=== PATIENT | female | born 2005 | race African-American/Black ===

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

== ENCOUNTER 2024-02-18 19:55 | Inpatient (IN) | payer OTHER ==
[~2024-02-18 19:55] MED LIST: Bupivacaine 0.25% HCL 30 ML VIAL ONE; Bupivacaine PF 0.5% 30 ML VIAL ONE; ePHEDrine Sulfate 50 MG/10 ML VIAL ONE
[2024-02-18 20:27] VITALS: BMI 37.5
[2024-02-18] MEDS ORDERED: HYDROcodone/Acetaminophen 5/325 mg Tablet PO PRN (20:45)
[2024-02-18] MEDS ORDERED: Promethazine HCl 25 MG/ML VIAL IM PRN (20:45)
[2024-02-18] MEDS ORDERED: hydrALAZINE 20 MG/ML VIAL SLOW IVP PRN (20:45)
[2024-02-18] MEDS ORDERED: Misoprostol 200 MCG TAB PR PRN (20:45)
[2024-02-18] MEDS ORDERED: Carboprost 250 MCG/ML AMP IM PRN (20:45)
[2024-02-18] MEDS ORDERED: Lactated Ringer's 1,000 ML IV SCH (20:45)
[2024-02-18] MEDS ORDERED: Methylergonovine 0.2 MG/ML VIAL IM PRN (20:45)
[2024-02-18] MEDS ORDERED: Oxytocin 30 units/NS 500 ML 500 ML IV SCH (20:45)
[2024-02-18] MEDS ORDERED: Tranexamic Acid 1,000 MG/10 ML VIAL IVP PRN (20:45)
[2024-02-18] MEDS ORDERED: Diphenoxylate HCl/Atropine Tablet PO PRN (20:45)
[2024-02-18] MEDS ORDERED: Lidocaine 1% (PF) 30 ML VIAL SC PRN (20:45)
[2024-02-18 21:13] LABS: Hematocrit 32.9 % (34.9-44.5); Hemoglobin 10.9 g/dL (12.0-15.5); Mean Corpuscular HGB CONC 33.1 g/dL (32.0-36.0); Mean Corpuscular Hemoglobin 29.3 pg (27.0-33.0); Mean Corpuscular Volume 88.4 fL (81.6-98.3); Mean Platelet Volume 12.5 fL (7.4-10.4); Platelet Count 205 10x3/uL (150-450); RBC Distribution Width 13.1 % (11.5-14.5); Red Blood Cell (RBC) Count 3.72 10x6/uL (3.90-5.03); White Blood Cell (WBC) Count 13.7 10x3/uL (3.5-10.5)
[2024-02-18] MEDS: Misoprostol 100 MCG TAB VAG SCH (22:01)
[2024-02-18 23:54] LABS: HBsAg Index 0.24 S/CO (0-0.99); Hep B Surf Ag - L&D Non-Reactive S/CO (NonReactive)
[2024-02-18 23:55] LABS: Syphilis Antibody Nonreactive (Nonreactive); Syphilis Antibody Index 0.04 S/CO (<1.00 Non-Reactive)
[2024-02-19] MEDS: fentaNYL 50 mcg/mL 1 mL Vial SLOW IVP PRN (04:40)
[2024-02-19] MEDS: Ondansetron PF 4 MG/2 ML Vial IVP PRN (05:21)
[2024-02-19] MEDS: fentaNYL/Ropivacaine Epidural 100 ML ONE (06:46)
[2024-02-19] MEDS ORDERED: Lactated Ringer's 500 ML IV PRN (06:55)
[2024-02-19] MEDS ORDERED: Ondansetron PF 4 MG/2 ML Vial IVP PRN ×2 (06:55→20:04)
[2024-02-19] MEDS ORDERED: Promethazine HCl 25 MG/ML VIAL IM PRN ×2 (06:55→20:04)
[2024-02-19] MEDS ORDERED: Naloxone HCl 0.4 mg/ml Vial IVP PRN ×2 (06:55)
[2024-02-19] MEDS ORDERED: Moisturizing Cream (Eucerin) 113 GM JAR TOP PRN (06:55)
[2024-02-19] MEDS ORDERED: Acetaminophen 325 MG TAB PO PRN (06:55)
[2024-02-19] MEDS ORDERED: ePHEDrine Sulfate 50 MG/10 ML VIAL SLOW IVP PRN (06:55)
[2024-02-19] MEDS ORDERED: diphenhydrAMINE 50 MG/ML VIAL IVP PRN (06:55)
[2024-02-19] MEDS ORDERED: Communication Order-Pharmacy FS SCH (07:00)
[2024-02-19] MEDS ORDERED: fentaNYL 2 mcg/Ropivacaine 0.2% Epidural 100 ML CADD EPIDURAL SCH (07:00)
[2024-02-19] MEDS: Oxytocin 30 units/NS 500 ML 500 ML IVPB SCH (09:57)
[2024-02-19] MEDS: Ibuprofen 800 MG TAB PO PRN (16:12)
[2024-02-19] MEDS: Acetaminophen 500 MG TAB PO PRN (18:35)
[2024-02-19] MEDS ORDERED: Boostrix 0.5 ML (Tdap) VIAL (>/=7 yrs of age) IM ONE (20:04)
[2024-02-19] MEDS ORDERED: hydrALAZINE 20 MG/ML VIAL SLOW IVP PRN (20:04)
[2024-02-19] MEDS ORDERED: diphenhydrAMINE 25 MG CAP PO PRN (20:04)
[2024-02-19] MEDS ORDERED: Lanolin Ointment 7 GM TUBE TOP PRN (20:04)
[2024-02-19] MEDS ORDERED: Bisacodyl 10 MG SUPP PR PRN (20:04)
[2024-02-19] MEDS ORDERED: Milk Of Magnesia 30 ML UDCUP PO PRN (20:04)
[2024-02-19] MEDS: Hepatitis B Vaccine 10 MCG/0.5 ML SYR ONE (20:05)
[2024-02-19] MEDS: Phytonadione Neonatal 1 MG/0.5 ML AMP ONE (20:05)
[2024-02-19] MEDS: HYDROcodone/Acetaminophen 5/325 mg Tablet PO PRN (21:15)
[2024-02-19] MEDS: Docusate 100 MG CAP PO SCH (21:15)
[2024-02-19] MEDS: Benzocaine-Menthol 82.5 ML CAN TOP PRN (23:24)
[2024-02-19] MEDS: Ibuprofen 800 MG TAB PO SCH (23:24)
[2024-02-20] MEDS: Ferrous Sulfate 325 MG TAB PO SCH (11:08)
[2024-02-20] MEDS: Prenatal Vitamin 1 TAB PO SCH (11:08)
[2024-02-20 23:39] VITALS: BP 136/77; TEMP 98
== END 2024-02-21 12:00 | disposition home or self-care (01) | DRG 807 ==
LOC: EEVIPCON 19:55 → CSHLD 19:55 → CSHPED 02-19 17:56
PROVIDERS: ADMIT Family Medicine; ATTEND Family Medicine
PROC: 10E0XZZ Delivery of Products of Conception, External Approach (ICD-10-PCS; principal; 2024-02-19)
PROC: 10907ZC Drainage of Amniotic Fluid, Therapeutic from Products of Conception, Via Natural or Artificial Opening (ICD-10-PCS; 2024-02-19)
DX: O99.214 Obesity complicating childbirth (principal); Z37.0 Single live birth; O43.893 Other placental disorders, third trimester; Z3A.39 39 weeks gestation of pregnancy; Z79.899 Other long term (current) drug therapy; Z79.82 Long term (current) use of aspirin; E66.9 Obesity, unspecified
CPT/HCPCS: 51702; 85027; 86780; 86850; 86900; 86901; 87340; J0665; J2405; J2590; J3010

== ENCOUNTER 2024-07-11 09:25 | Emergency (ER) | payer OTHER | END 2024-07-11 10:55 | disposition home or self-care (01) | LOC: CSHERS 09:25 | DX: B34.9 Viral infection, unspecified (principal) | CPT/HCPCS: 87428; 99283 ==

== ENCOUNTER 2024-12-24 11:07 | Emergency (ER) | payer OTHER ==
[2024-12-24 11:35] LABS: Glucose, Urine (Dipstick) Normal (Negative); Leukocyte 500 (Negative); Protein, Urine (Dipstick) 100 mg/dl (Neg-Trace); Specific Gravity, Urine 1.015 (1.005-1.030)
[2024-12-24 11:37] LABS: Pregnancy Test - Urine (BHCG) Negative (Negative); Pregu Control Background? CLEAR/WHITE (CLR/WHITE); Pregu Control Bar Appear? YES (CONTROL BAR)
[2024-12-24 11:52] LABS: CAUTI Indications for Culture Pelvic or flank pain; WBC/HPF Greater than 50 HPF (0-3)
[2024-12-24 11:53] LABS: Bacteria/HPF 4+ HPF (None Seen); Mucous/LPF 1+ LPF (<2+)
[2024-12-24 11:54] LABS: Urine Culture Reflex Yes Yes
[2024-12-24] MEDS ORDERED: Ondansetron PF 4 MG/2 ML Vial ONE (12:15)
[2024-12-24] MEDS ORDERED: Ketorolac Tromethamine 30 MG (1 mL) VIAL ONE (12:15)
[2024-12-24] MEDS ORDERED: cefTRIAXone (ROCEPHIN) 1 GM VIAL ONE (12:24)
[2024-12-24 12:36] LABS: #Basophils 0.03 10x3/uL (0.0-0.2); #Eosinophils 0.03 10x3/uL (0.0-0.5); #Monocytes 0.95 10x3/uL (0.0-1.1); #Neutrophils 12.47 10x3/uL (1.5-8.4); %Basophils 0.2 % (0.0-2.0); %Eosinophils 0.2 % (0.0-6.0); %Lymphocytes 7.5 % (18.0-47.0); %Monocytes 6.5 % (0.0-10.0); %Neutrophils 85.3 % (40.0-75.0); Hematocrit 42.3 % (34.9-44.5); Hemoglobin 13.8 g/dL (12.0-15.5); Mean Corpuscular Hemoglobin 28.3 pg (27.0-33.0); Mean Corpuscular Volume 86.9 fL (81.6-98.3); Platelet Count 282 10x3/uL (150-450); Red Blood Cell (RBC) Count 4.87 10x6/uL (3.90-5.03); White Blood Cell (WBC) Count 14.62 10x3/uL (3.5-10.5)
[2024-12-24 12:54] LABS: ALT (SGPT) 8 U/L (Less than 34); AST (SGOT) 16 U/L (11-34); Albumin 4.7 g/dL (3.1-4.5); Alkaline Phosphatase 101 U/L (40-100); Anion Gap 14 mmol/L (10-20); BUN (Urea Nitrogen) 12 mg/dL (7.0-18.7); Bilirubin, Total 0.7 mg/dL (0.3-1.2); Calc. Creatinine Clearance 0 mL/min (70-130); Calcium 9.9 mg/dL (7.8-10.44); Carbon Dioxide 24 mmol/L (22-29); Chloride 102 mmol/L (98-107); Globulin 4.5 g/dL (2.4-3.5); Glucose 98 mg/dL (70-105); Lipase 27 U/L (8-78); Potassium 3.9 mmol/L (3.5-5.1); Sodium 136 mmol/L (136-145)
== END 2024-12-24 14:12 | disposition home or self-care (01) ==
LOC: CSHERS 11:07
DX: N10 Acute pyelonephritis (principal); N20.0 Calculus of kidney; N39.0 Urinary tract infection, site not specified
CPT/HCPCS: 74176; 80053; 81001; 81025; 83690; 85025; 87077; 87086; 87186; 96365; 96375; J0696; J1885; J2405